=== PATIENT | female | born 1960 | race African-American/Black ===

== ENCOUNTER 2020-08-19 13:26 | Emergency (ER) | payer OTHER ==
[~2020-08-19] VITALS: Ht 167.6 cm; Wt 86.6 kg
[2020-08-19 13:41] VITALS: BP 182/88
--- NOTE | 2020-08-19 13:41 | NUR ---
ED Nurse Note: Pt walked in to ED c/o boil to vaginal area x3 days. Pt unable to sit still due to pain. AAOx4, verbally responsive. No SOB.
[2020-08-19] MEDS ORDERED: Lidocaine 1% MPF 10mg/ml 5ml IM ONE (14:00)
--- NOTE | 2020-08-19 14:14 | Emergency Room Report ---
History of Present Illness General Chief Complaint: Female Urogenital Problems Source: Patient Present Illness HPI 60-year-old female presents to the emergency department complaining of 10 out of 10 severity pain, tenderness, swelling and erythema to the outside of the right labia x3 days. Patient reports history of boils in the past. Patient denies fevers or chills. She denies suspicion STI. Patient denies ulcerative like lesions or swollen tender lymph nodes. Patient denies history of immune compromise. She denies significant past medical history. She reports she has been attempting use hot compresses at home with no relief of her symptoms. Allergies: Coded Allergies: No Known Allergies (Unverified , 08/19/20) COVID-19 Screening Contact w/high risk pt: No Experienced COVID-19 symptoms?: No COVID-19 Testing performed CAREER TRANSITION SPECIALIST: No Patient History Past Medical History: see triage record Past Surgical History: none Pertinent Family History: none Now: No Reviewed Nursing Documentation: PMH: Agreed; PSxH: Agreed Nursing Documentation-PMH Past Medical History: No Stated History Review of Systems All Other Systems: negative except mentioned in HPI Physical Exam Vital Signs Date Time Temp Pulse Resp B/P (MAP) Pulse Ox O2 Delivery O2 Flow Rate FiO2 08/19/20 13:35 98.6 93 19 182/88 (119) 95 Room Air Sp02 EP Interpretation: reviewed, normal General Appearance: no apparent distress, alert, GCS 15, non-toxic Head: normocephalic, atraumatic Eyes: bilateral eye normal inspection, bilateral eye PERRL ENT: hearing grossly normal, normal voice Neck: full range of motion Respiratory: lungs clear, normal breath sounds, speaking full sentences Cardiovascular #1: regular rate, rhythm Gastrointestinal: non tender, soft Genitourinary: normal inspection, other - swelling, induration, warmth to localized 1.5cm area of the lower outter aspect of the labia majora Musculoskeletal: back normal, normal range of motion, gait/station normal, non- tender Neurologic: alert, motor strength/tone normal, oriented x3, sensory intact, responsive, speech normal Psychiatric: judgement/insight normal Skin: other - swelling, induration, warmth to localized 1.5cm area of the lower outter aspect of the labia majora Lymphatic: no adenopathy Procedures Incision and Drainage Incision and Drainage : Consent: Verbal Site: right labia majora Blade Size: 11 I & D Procedure: betadine prep Wound Location: pelvis Wound's Depth, Shape: linear Wound Length (cm): 1 Wound Explored: contaminated Anesthesia: 1% Lidocaine Volume Anesthetic (ccs): 2 Splint Applied?: No Sling Applied?: No Patient Tolerated: Well Complications: None Medical Decision Making PA Attestation Dr. Alexis is my supervising Physician whom patient management has been discussed with. Diagnostic Impression: Primary Impression: Abscess Additional Impression: Encounter for incision and drainage procedure ER Course 60-year-old female presents to the emergency department complaining of 10 out of 10 severity pain, tenderness, swelling and erythema to the outside of the right labia x3 days. Patient reports history of boils in the past. Patient denies fevers or chills. She denies suspicion STI. Patient denies ulcerative like lesions or swollen tender lymph nodes. Patient denies history of immune compromise. She denies significant past medical history. She reports she has been attempting use hot compresses at home with no relief of her symptoms. Ddx considered but are not limited to cellulitis, abscess, cystic acne, nec rotizing fasciitis, insect bite. Vital signs: are WNL, pt. is afebrile H&PE are most consistent with 1.5cm abscess of the lower portion of the outer right labia majora ORDERS: none required at this time, the diagnosis is clinical ED INTERVENTIONS: -I & D. - DISCHARGE: At this time pt. is stable for d/c to home. Will provide printed patient care instructions, and any necessary prescriptions. Care plan and follow up instructions have been discussed with the patient prior to discharge. Last Vital Signs Date Time Temp Pulse Resp B/P (MAP) Pulse Ox O2 Delivery O2 Flow Rate FiO2 08/19/20 13:41 98.6 93 19 182/88 95 Room Air Status: improved Disposition: HOME, SELF-CARE Condition: Stable Scripts Trimethoprim/Sulfamethoxazole 160/800* (BACTRIM DS TABLET*) 1 Each Tablet 1 TAB ORAL TWICE A DAY, #14 TAB Prov: Carina Liang 08/19/20 Cephalexin* (KEFLEX*) 500 Mg Capsule 500 MG ORAL EVERY 12 HOURS for 7 Days, #14 CAP 0 Refills Prov: Carina Liang 08/19/20 Bacitracin (Bacitracin) 28.4 Gm Oint...g. 1 APPLIC TOPIC THREE TIMES A DAY, #28.4 GM Prov: Carina Liang 08/19/20 Acetaminophen* (TYLENOL EXTRA STRENGTH*) 500 Mg Tablet 500 MG ORAL Q6H, #20 TAB 0 Refills Prov: Carina Liang 08/19/20 Referrals: [facility]re [facility]. [facility] Departure Forms: Return to Work Return to Work Date: Aug 26, 2020 Other Restrictions: May return Sooner if Symptoms have resolved. Return to Full Activity: Aug 26, 2020 Work Restrictions: None Patient Instructions: Abscess, [id number] Additional Instructions: Take medications as directed. Follow up with a Primary Care Provider in 3-5 days, even if your symptoms have resolved. --Please review list of primary care clinics, if you do not already have a [facility] care provider Return sooner to ED if new symptoms occur, or current symptoms become worse. - Please note that this Emergency Department Report was dictated using [employer] technology software, occasionally this can lead to erro neous entry secondary to interpretation by the dictation equipment. Carina Liang Aug 19, 2020 14:14
[2020-08-19] MEDS ORDERED: HYDROcodone/Acetamin 5/325 tab ORAL ONE (14:15)
--- NOTE | 2020-08-19 14:28 | NUR ---
ED Nurse Note: PT. REFUSED THE NORCO STATING THAT TYLENOL #3 WORKS BETTER FOR HER THAN NORCO. ISA FELIX NOTIFIED
[2020-08-19] MEDS ORDERED: Tylenol #3 tab (300mg/30mg) ORAL ONE (14:30)
[2020-08-19] MEDS ORDERED: BACTRIM DS TAB1 EAC1 ORAL (15:01)
[2020-08-19] MEDS ORDERED: TYLENOL EXTRA500 MG ORAL (15:01)
[2020-08-19] MEDS ORDERED: BACITRACIN15 GM TOPIC (15:01)
[2020-08-19] MEDS ORDERED: CEPHALEXIN500 MG ORAL (15:01)
[2020-08-19 15:20] VITALS: BP 158/78
--- NOTE | 2020-08-19 15:20 | NUR ---
ER DISCHARGE NOTE: Patient is cleared to be discharged per ERMD, pt is aox4, on room air, with stable vital signs. pt was given dc and prescription instructions, pt was able to verbalize understanding, pt id band removed. pt is able to ambulate with steady gait. pt took all belongings.
== END 2020-08-19 15:20 | disposition home or self-care (01) ==
LOC: EMR 14:10
DX: N76.4 Abscess of vulva (principal); Z76.89 Persons encountering health services in other specified circumstances
CPT/HCPCS: 10060; Z7502; 99282